=== PATIENT | male | born 1970 | race Caucasian/White ===

== ENCOUNTER 2016-08-29 16:54 | Emergency (ER) ==
[2016-08-29 17:01] VITALS: BP 176/95; TEMP 96.6; BMI 30.8
[2016-08-29] MEDS ORDERED: DUONEB NEB STA (17:07)
[2016-08-29] MEDS ORDERED: ZITHROMAX 500 MG in SODIUM CHLORIDE 250 ML IV STA (17:08)
[2016-08-29] MEDS ORDERED: SOLU-MEDROL 125 MG IVP STA (17:08)
[2016-08-29] MEDS ORDERED: XOPENEX 1.25 MG NEB STA (17:08)
[2016-08-29 17:11] LABS: ABG BASE EXCESS -2 (-2.0-2.0); ABG HCO3 23.1 (22.0-26.0); ABG PCO2 36.7 mmHg (35-45); ABG PH 7.406 (7.35-7.45); ABG TCO2 24 (22.0-28.0)
[2016-08-29 17:18] LABS: BASOPHILS # (AUTO) 0.1 K/uL (0-0.2); BASOPHILS % (AUTO) 0.4 % (0.0-3.0); EOSINOPHILS # (AUTO) 0.4 K/ul (0.0-0.7); EOSINOPHILS % (AUTO) 3.4 % (0.0-7.0); HEMATOCRIT 38.4 % (42.0-52.0); HEMOGLOBIN 12.8 g/dl (14.0-18.0); IMMATURE GRANULOCYTE % (AUTO) 0.3 % (0.0-5.0); LYMPHOCYTES % (AUTO) 32.3 (10.0-50.0); MEAN CORPUSCULAR HEMOGLOBIN 28.3 pg (27.0-31.0); MEAN CORPUSCULAR HGB CONC 33.3 (31.8-35.4); MONOCYTES # (AUTO) 0.9 K/uL (0.4-2.0); NEUTROPHILS % (AUTO) 56.6; PLATELET COUNT 384 10^3/uL (140-440); RED BLOOD COUNT 4.52 10^6/ul (4.70-6.10); WHITE BLOOD COUNT 12.31 K/ul (4.2-10.2)
[2016-08-29] MEDS ORDERED: DOXY-100 100 MG in SODIUM CHLORIDE 250 ML IV STA (17:32)
[2016-08-29 17:39] LABS: FLU INTERNAL QC INTERNAL QC VALID; RAPID FLU A NEGATIVE (NEGATIVE); RAPID FLU B NEGATIVE (NEGATIVE)
[2016-08-29 17:57] LABS: ALBUMIN 3.5 g/dL (3.4-5.0); ALBUMIN/GLOBULIN RATIO 0.88; ANION GAP 13.1; BILIRUBIN,TOTAL 0.29 mg/dL (0.00-1.20); BUN/CREATININE RATIO 11.88; CALCIUM 9.2 mg/dL (8.2-10.2); CREATININE 1.01 mg/dL (0.60-1.10); POTASSIUM 4.1 mmol/L (3.5-5.1); TOTAL PROTEIN 7.5 g/dL (6.4-8.2); TROPONIN I 0.01 ng/ml (0.0000-0.4000)
[2016-08-29 18:00] LABS: CREATINE KINASE MB 1.2 ng/ml (0.0-3.6)
--- NOTE | 2016-08-29 18:14 | CT ---
EXAM: Noncontrast CT of the chest HISTORY: Cough, fever COMPARISON: 12/18/2015 chest x-ray, 06/19/2015 CT TECHNIQUE: Noncontrast CT of the chest FINDINGS: An area of atelectasis and/or consolidation is seen within the right middle lobe. Mild right middle lobe tree in bud type opacities seen inferiorly. Mild left upper lobe tree in bud type opacities a re also present. There are minimal bilateral lower lobe tree in bud opacities, left greater than ri ght. There is mild left lingular atelectasis or scarring with minimal adjacent pleural calcificatio n.. No pneumothorax or pleural effusion is seen. Heart size is normal. A 10 mm pretracheal lymph node is seen, minimally increased. A 12 mm pretrac heal lymph node is seen, also increased. A 10 mm prevascular lymph node is seen, increased in size. A 10 mm subcarinal lymph node is present, also increased. Other smaller mediastinal lymph nodes ar e present. Evaluation for hilar lymphadenopathy is limited due to noncontrast technique. IMPRESSION: Mild bilateral tree-in-bud opacities most prominent within the left upper lobe and right middle lobe , compatible with small airway infection or inflammation. Mild right middle lobe atelectasis and/or consolidation. Mild left lingular atelectasis or scarring. Borderline enlarged to mildly enlarged nonspecific mediastinal lymph nodes, likely reactive.
--- NOTE | 2016-08-29 18:22 | ED.PDOC ---
General ED Provider: Dr. JUDITH ESPINOZA-ER Chief Complaint: Shortness of Air Stated Complaint: im coughing and wheezing Time Seen by Physician: 18:20 Mode of Arrival: Walk-In Information Source: Patient Exam Limitations: No limitations Nursing and Triage Documentation Reviewed and Agree: Yes Respiratory Complaint Exam - Respiratory Complaint/Exam Onset/Duration: 24hrs Symptoms Are: Still present Timing: Intermittent Initial Severity: Mild Current Severity: Mild Location: Nose, Chest Character: Reports: Non-productive cough Aggravating: Reports: URI Alleviating: Reports: None Associated Signs and Symptoms: Reports: URI, Nasal congestion, Sore throat. Denies: Rapid breathing, Dyspnea, Fever, Chills, Chest pain, Pleuritic chest pain, Wheezing, Hemoptysis, Dizziness, Calf pain, Calf swelling, Edema, Hoarseness, Sinus discomfort, Vomiting, Weight loss, Decreased oral intake, Increased thirst, Increased appetite, Increased urination Related History: Reports: Similar episode History of Healthcare-Acquired Pneumonia: No Related Surgical History: Reports: None Pulmonary Embolism Risk Factors: None Cardiac Risk Factors: Reports: None Pseudomonas Risk Factors: Reports: None Tuberculosis Risk Factors: Reports: None Status Asthmaticus Risk Factors: Reports: None Home Oxygen Use: No Recent Stress Test: No Recent Echo/LV Function: No Current Antibiotic Use: No Current Asthma Medication Use: No Respiratory Distress: None Inadequate Respiratory Effort: No Dysphagia Present: No Accessory Muscle Use: No Retractions: Not Present Diminished Breath Sounds: No Sinus Tenderness: None Grunting Respirations: No Kussmaul Respirations: No Differential Diagnoses: Bronchitis Review of Systems - Review Of Systems Constitutional: Reports: No symptoms Eyes: Reports: No symptoms Ears, Nose, Mouth, Throat: Reports: Nose discharge Respiratory: Reports: Cough Cardiac: Reports: No symptoms GI: Reports: No symptoms : Reports: No symptoms Musculoskeletal: Reports: No symptoms Skin: Reports: No symptoms Neurological: Reports: No symptoms Endocrine: Reports: No symptoms Hematologic/Lymphatic: Reports: No symptoms All Other Systems: Reviewed and Negative Past Medical History - Past Medical History Previously Healthy: Yes Endocrine: Reports: None Cardiovascular: Reports: None Respiratory: Reports: None Hematological: Reports: None Gastrointestinal: Reports: None Genitourinary: Reports: None Neuro/Psych: Reports: None Musculoskeletal: Reports: None Cancer: Reports: None - Surgical History General Surgical History: Reports: Appendectomy - Family History Family History: Reports: Unknown - Social History Smoking Status: Former smoker Hx Substance Use: No Alcohol Screening: None Lives: With family Physical Exam - Physical Exam Appearance: Well-appearing Eyes: MAXIM, EOMI, Conjunctiva clear ENT: Ears normal, Nose normal, Oropharynx normal Neck: Supple Respiratory: Wheezes Cardiovascular: RRR, Pulses normal, No rub, No murmur GI/: Soft, Hepatomegaly Musculoskeletal: Normal strength, ROM intact, No edema, No calf tenderness Skin: Warm Neurological: Sensation intact, Motor intact, Reflexes intact, Cranial nerves intact, Alert, Oriented Psychiatric: Affect appropriate, Mood appropriate Interpretation - Radiology Interpretation Radiology Interpretation By: Radiologist Radiology Results: Positive Exam Interpreted: CT Scan Re-Evaluation - Re-Evaluation Time of Re-Evaluation: 18:22 Status: Improved Vital Signs Stable: Yes Pain Level: 1 Appearance: NAD Lungs: Clear Skin: Warm and Dry Neuro: Alert and Oriented X3 CV: RRR Critical Care Note - Critical Care Note Total Time (mins): 0 Course - Course Hematology/Chemistry: 08/29/16 17:10 08/29/16 17:10 Orders, Labs, Meds: Lab Review 08/29/16 08/29/16 17:05 17:10 WBC 12.31 H RBC 4.52 L Hgb 12.8 L Hct 38.4 L MCV 85.0 MCH 28.3 MCHC 33.3 RDW Coeff of Dwight 12.7 Plt Count 384 Immature Gran % (Auto) 0.3 Neut % (Auto) 56.6 Lymph % (Auto) 32.3 [place] % (Auto) 7.0 Eos % (Auto) 3.4 Baso % (Auto) 0.4 Immature Gran # (Auto) 0.0 Neut # 7.0 H Lymph # 4.0 H [place] # 0.9 Eos # 0.4 Baso # 0.1 D-Dimer 0.40 Puncture Site Rr O2 Saturation 92.0 L ABG pH 7.406 ABG pCO2 36.7 ABG pO2 64.0 L ABG HCO3 23.1 ABG Total CO2 24 ABG Base Excess -2 Nguyễn Test + FiO2 % 21.0 Sodium 140 Potassium 4.1 Chloride 105 Carbon Dioxide 26 Anion Gap 13.1 BUN 12 Creatinine 1.01 Estimated GFR (MDRD) 80.00 BUN/Creatinine Ratio 11.88 Glucose 93 Calcium 9.2 Total Bilirubin 0.29 AST 19 ALT 15 Alkaline Phosphatase 91 Total Creatine Kinase 160 CK-MB (CK-2) 1.2 CK-MB (CK-2) % 0.30358 Troponin I 0.0100 B-Natriuretic Peptide 19 Total Protein 7.5 Albumin 3.5 Globulin 4.0 Albumin/Globulin Ratio 0.88 Influenza A (Rapid) Negative Influenza B (Rapid) Negative Orders Category Date Time Status ABG DRAW REQUEST Stat CARDIO 08/29/16 17:06 Completed EKG-(ED ONLY) Stat CARDIO 08/29/16 17:05 Completed NEBULIZER TREATMENT Stat CARDIO 08/29/16 17:07 Completed NEBULIZER TREATMENT Stat CARDIO 08/29/16 17:08 Completed IV [ED IV/MEDIPORT/POWERPORT] .ONCE EMERGENCY 08/29/16 17:07 Active ABG Stat LAB 08/29/16 17:05 Completed B-TYPE NATRIURETIC PEPTIDE Stat LAB 08/29/16 17:10 Completed BLOOD CULTURE Stat LAB 08/29/16 17:10 Received CBC W/ AUTO DIFF Stat LAB 08/29/16 17:10 Completed COMPREHENSIVE METABOLIC PANEL Stat LAB 08/29/16 17:10 Completed CREATINE KINASE Stat LAB 08/29/16 17:10 Completed D-DIMER Stat LAB 08/29/16 17:10 Completed MOLECULAR GROUP A STREP Stat LAB 08/29/16 17:10 Results RAPID FLU A/B Stat LAB 08/29/16 17:10 Completed STREP SCREEN Stat LAB 08/29/16 17:10 Results TROPONIN I Stat LAB 08/29/16 17:10 Completed 0.9 % Sodium Chloride [Saline Flush] MEDS 08/29/16 17:07 Ordered 1 syr IVF PRN PRN Doxycycline Hyclate Inj [Doxy-100] 100 mg MEDS 08/29/16 17:32 Active 0.9 % Sodium Chloride [Sodium Chloride] 250 ml IV ONCE Ipratropium/Albuterol Neb [Duoneb] MEDS 08/29/16 17:07 Discontinued 1 vial NEB ONCE STA Levalbuterol HCl [Xopenex 1.25 mg] MEDS 08/29/16 17:08 Discontinued 1 vial NEB ONCE STA Methylprednisolone Sod Succ/Pf [Solu-Medrol 125 mg] MEDS 08/29/16 17:08 Discontinued 125 [address] IVP ONCE STA CT CHEST W/O CONTRAST Stat RADS 08/29/16 17:07 Completed Medications Generic Name Dose Route Start Last Admin Trade Name Freq PRN Reason Stop Dose Admin Doxycycline Hyclate 100 mg/ 250 mls @ 100 mls/hr 08/29/16 17:32 08/29/16 17: 51 Sodium Chloride IV 08/29/16 20:01 100 mls/hr ONCE STA Administration Sodium Chloride 1 syr 08/29/16 17:07 Saline Flush IVF PRN PRN To flush IV Discontinued Medications Generic Name Dose Route Start Last Admin Trade Name Freq PRN Reason Stop Dose Admin Albuterol/Ipratropium 1 vial 08/29/16 17:07 08/29/16 17:29 Duoneb NEB 08/29/16 17:08 1 vial ONCE STA Administration Levalbuterol HCl 1 vial 08/29/16 17:08 08/29/16 17:17 Xopenex 1.25 Mg NEB 08/29/16 17:09 1 vial ONCE STA Administration Methylprednisolone Sodium Succinate 125 mg 08/29/16 17:08 08/29/16 17:12 Solu-Medrol 125 Mg IVP 08/29/16 17:09 125 mg ONCE STA Administration Vital Signs: Temp Pulse Resp BP Pulse Ox 08/29/16 16:54 96.6 F L 80 20 176/95 H 95 Departure - Departure Time of Disposition: 18:22 Disposition: AMA Discharge Problem: Pneumonia Qualifiers: Pneumonia type: due to unspecified organism Laterality: unspecified laterality Lung location: unspecified part of lung Qualifier Code: (J18.9) Pneumonia, unspecified organism Instructions: Community Acquired Pneumonia (ED) Condition: Good Pt referred to PMD for follow-up: Yes Additional Instructions: doxycycline 100mg bid x 7days--medrol dose pack--albuterol inhaler 2 puffs qid - -return prn Allergies/Adverse Reactions: Allergies ciprofloxacin [From Cipro] Adverse Reaction (Verified 08/29/16 17:03) ciprofloxacin HCl [From Cipro] Adverse Reaction (Verified 08/29/16 17:03) clarithromycin [From Biaxin] Adverse Reaction (Verified 08/29/16 17:03) Penicillins Adverse Reaction (Verified 08/29/16 17:03) Home Medications: Ambulatory Orders Albuterol Sulfate [Proventil Hfa] 6.7 gm IH QID PRN #1 [email or web address] 12/18/15 Disposition Discussed With: Patient
== END 2016-08-29 20:38 | disposition left against medical advice (07) ==
LOC: ED 16:54
DX: J18.9 Pneumonia, unspecified organism (principal)
CPT/HCPCS: 36415; 80053; 82550; 82553; 82803; 83880; 84484; 85025; 85379; 87040; 87651; 87804; 87880; 93005; 93010; 94640; 96365; 96366; 96375; 99284

== ENCOUNTER 2016-12-10 19:46 | Emergency (ER) ==
[2016-12-10] MEDS ORDERED: EYE-STREAM OP STA (19:52)
[2016-12-10] MEDS ORDERED: FLUORETS OP STA (19:52)
[2016-12-10 19:53] VITALS: BP 140/95; TEMP 98.4; BMI 29.6
[2016-12-10] MEDS ORDERED: TETRACAINE 0.5% UNIT-DOSE OP STA (19:53)
[2016-12-10] MEDS ORDERED: GENTAK OPTH OINT OP STA (19:53)
--- NOTE | 2016-12-10 20:07 | ED.PDOC ---
General ED Provider: Dr. JUDITH ESPINOZA-ER Chief Complaint: Eye Problem Stated Complaint: i got some coal dust in my left eye 2 days ago adn removed it- -now my eye is red and draining.. Time Seen by Physician: 19:50 Mode of Arrival: Walk-In Information Source: Patient Exam Limitations: No limitations Nursing and Triage Documentation Reviewed and Agree: Yes EENT Complaint Exam - Eye Complaint/Exam Onset/Duration: 2 days Symptoms Are: Still present Timing: Constant Initial Severity: Mild Current Severity: Moderate Location: Discreet, Left Character: Reports: Dull Aggravating: Reports: Light, Blinking Associated Signs and Symptoms: Reports: Photophobia, Purulent drainage. Denies : Clear drainage, Vision impairment, Fever, Swelling Eye Surgical History: Reports: None Penetrating Injury Risk Factors: None Globe Rupture Risk Factors: None Acute Glaucoma Risk Factors: None Optic Artery Occlusion Risk Factors: None Visual Field: Normal Extraocular Movement: Normal Orbit Findings: Normal Globe Findings: Intact Lid Findings: Normal Conjunctival Findings: Red, Exudate Corneal Findings: Clear Fluorescein Uptake: Yes Fundi: Normal Slit Lamp Used: No Differential Diagnoses: Conjunctivitis, Corneal Abrasion, Foreign Body Review of Systems - Review Of Systems Constitutional: Reports: No symptoms Eyes: Reports: Drainage, Pain, Photophobia, Contact lenses, Glasses Ears, Nose, Mouth, Throat: Reports: No symptoms Respiratory: Reports: No symptoms Cardiac: Reports: No symptoms GI: Reports: No symptoms : Reports: No symptoms Musculoskeletal: Reports: No symptoms Skin: Reports: No symptoms Neurological: Reports: No symptoms Endocrine: Reports: No symptoms Hematologic/Lymphatic: Reports: No symptoms All Other Systems: Reviewed and Negative Past Medical History - Past Medical History Previously Healthy: Yes Endocrine: Reports: None Cardiovascular: Reports: None Respiratory: Reports: None Hematological: Reports: None Gastrointestinal: Reports: None Genitourinary: Reports: None Neuro/Psych: Reports: None Musculoskeletal: Reports: None Cancer: Reports: None - Surgical History General Surgical History: Reports: Appendectomy - Family History Family History: Reports: Unknown - Social History Smoking Status: Former smoker Hx Substance Use: No Alcohol Screening: None Lives: With family Physical Exam - Physical Exam Appearance: Well-appearing, No pain distress, Well-nourished Pain Distress: Mild Eyes: MAXIM, EOMI, Conjunctiva inflammed, Right pupil size, Left pupil size ENT: Ears normal, Nose normal, Oropharynx normal Neck: Supple Respiratory: Airway patent, Breath sounds clear, Breath sounds equal, Respirations nonlabored Cardiovascular: RRR, Tachycardia GI/: Soft, Nontender, No masses, Bowel sounds normal, No Organomegaly Musculoskeletal: Normal strength Skin: Warm Neurological: Sensation intact Psychiatric: Affect appropriate, Mood appropriate Procedures - Eye Procedure Location of Foreign Body: no f.b seen Tetracaine Drops Administered: Yes Eye FB Removal: Other (fb not seen but corneal abrasion is seen) Depth: Superficial Eye Irrigated: Yes Critical Care Note - Critical Care Note Total Time (mins): 0 Course - Course Orders, Labs, Meds: Orders Category Date Time Status Eye [ED EYE PATCH] .ONCE EMERGENCY 12/10/16 19:52 Active Balanced Salt Solution [Eye-Stream] MEDS 12/10/16 19:52 Discontinued 1 bottle OP ONCE STA Fluorescein Sodium [Fluorets] MEDS 12/10/16 19:52 Discontinued 1 strip OP ONCE STA Gentamicin Sulfate [Gentak Opth Oint] MEDS 12/10/16 19:53 Discontinued 1 applic OP ONCE STA Tetracaine HCl/Pf [Tetracaine 0.5% Unit-Dose] MEDS 12/10/16 19:53 Discontinued 2 drop OP ONCE STA Medications Discontinued Medications Generic Name Dose Route Start Last Admin Trade Name Freq PRN Reason Stop Dose Admin Eye Irrigation Solution 1 bottle 12/10/16 19:52 Eye-Stream OP 12/10/16 19:53 ONCE STA Fluorescein Sodium 1 strip 12/10/16 19:52 Fluorets OP 12/10/16 19:53 ONCE STA Gentamicin Sulfate 1 applic 12/10/16 19:53 Gentak Opth Oint OP 12/10/16 19:54 ONCE STA Tetracaine HCl 2 drop 12/10/16 19:53 Tetracaine 0.5% Unit-Dose OP 12/10/16 19:54 ONCE STA Vital Signs: Temp Pulse Resp BP Pulse Ox 12/10/16 19:47 98.4 F 69 20 140/95 H 96 Departure - Departure Time of Disposition: 20:07 Disposition: HOME SELF-CARE Discharge Problem: Corneal abrasion Qualifiers: Encounter type: initial encounter Laterality: left Qualifier Code: (S05.02XA) Injury of conjunctiva and corneal abrasion without foreign body, left eye, initial encounter Instructions: Corneal Abrasion (ED) Condition: Good Pt referred to PMD for follow-up: Yes Additional Instructions: keep eye patched--norco 7.5mg q 4hrs prn pain #10--reapply the gentamycin ointment in the eye in am and you must see eye professional tomorrow to recheck eye--do not wear contact lens till healed Allergies/Adverse Reactions: Allergies ciprofloxacin [From Cipro] Adverse Reaction (Verified 12/10/16 19:54) ciprofloxacin HCl [From Cipro] Adverse Reaction (Verified 12/10/16 19:54) clarithromycin [From Biaxin] Adverse Reaction (Verified 12/10/16 19:54) Penicillins Adverse Reaction (Verified 12/10/16 19:54) Home Medications: Ambulatory Orders Albuterol Sulfate [Proventil Hfa] 6.7 gm IH QID PRN #1 [email or web address] 12/18/15 Disposition Discussed With: Patient
== END 2016-12-10 20:29 | disposition home or self-care (01) ==
LOC: ED 19:46
DX: S05.02XA Injury of conjunctiva and corneal abrasion without foreign body, left eye, initial encounter (principal)
CPT/HCPCS: 99282

== ENCOUNTER 2017-05-03 17:32 | Emergency (ER) ==
[2017-05-03 17:38] VITALS: BP 114/79; TEMP 98.9; BMI 31.7
[2017-05-03] MEDS ORDERED: DUONEB NEB STA (19:00)
[2017-05-03] MEDS ORDERED: DECADRON 4 MG/ML SDV IM STA (19:00)
[2017-05-03 19:18] LABS: BASOPHILS # (AUTO) 0.1 K/uL (0-0.2); BASOPHILS % (AUTO) 0.4 % (0.0-3.0); EOSINOPHILS # (AUTO) 0.4 K/ul (0.0-0.7); EOSINOPHILS % (AUTO) 3.1 % (0.0-7.0); HEMATOCRIT 34.4 % (42.0-52.0); HEMOGLOBIN 11.6 g/dl (14.0-18.0); IMMATURE GRANULOCYTE % (AUTO) 0.4 % (0.0-5.0); LYMPHOCYTES # (AUTO) 4.3 K/uL (0.60-3.4); LYMPHOCYTES % (AUTO) 33.3 (10.0-50.0); MEAN CORPUSCULAR HEMOGLOBIN 28.6 pg (27.0-31.0); MEAN CORPUSCULAR HGB CONC 33.7 (31.8-35.4); MEAN CORPUSCULAR VOLUME 84.7 fl (80.0-94.0); MONOCYTES % (AUTO) 7.3 (0-10); NEUTROPHILS # (AUTO) 7.2 K/ul (2.0-6.9); NEUTROPHILS % (AUTO) 55.5; PLATELET COUNT 358 10^3/uL (140-440); RED BLOOD COUNT 4.06 10^6/ul (4.70-6.10); WHITE BLOOD COUNT 12.99 K/ul (4.2-10.2)
[2017-05-03 19:33] LABS: FLU INTERNAL QC INTERNAL QC VALID; RAPID FLU A NEGATIVE (NEGATIVE); RAPID FLU B NEGATIVE (NEGATIVE)
[2017-05-03 19:42] LABS: ALBUMIN 3.4 g/dL (3.4-5.0); ALBUMIN/GLOBULIN RATIO 0.89; ANION GAP 12.8; BILIRUBIN,TOTAL 0.26 mg/dL (0.00-1.20); BUN/CREATININE RATIO 13.95; CALCIUM 9.5 mg/dL (8.2-10.2); CREATININE 0.86 mg/dL (0.60-1.10); POTASSIUM 3.8 mmol/L (3.5-5.1); TOTAL PROTEIN 7.2 g/dL (6.4-8.2)
[2017-05-03 19:58] LABS: ABG BASE EXCESS 2 (-2.0-2.0); ABG HCO3 26 (22.0-26.0); ABG PCO2 40.2 mmHg (35-45); ABG PH 7.419 (7.35-7.45); ABG TCO2 27 (22.0-28.0)
--- NOTE | 2017-05-03 20:45 | ED.PDOC ---
General ED Provider: Dr. JUDITH ESPINOZA-ER Chief Complaint: Shortness of Air Stated Complaint: im coughing and running a fever Time Seen by Physician: 17:35 Mode of Arrival: Walk-In Information Source: Family Exam Limitations: No limitations Nursing and Triage Documentation Reviewed and Agree: Yes Respiratory Complaint Exam - Respiratory Complaint/Exam Onset/Duration: 3 weeks Symptoms Are: Still present Timing: Intermittent Initial Severity: Mild Current Severity: Moderate Location: Chest Character: Reports: Productive cough Aggravating: Reports: None Alleviating: Reports: None Associated Signs and Symptoms: Reports: Fever, Wheezing, URI, Nasal congestion. Denies: Rapid breathing, Dyspnea, Chills, Chest pain, Pleuritic chest pain, Hemoptysis, Dizziness, Calf swelling, Edema, Hoarseness, Sinus discomfort, Vomiting, Sore throat, Weight loss, Decreased oral intake, Increased thirst, Increased urination Related History: Reports: Similar episode History of Healthcare-Acquired Pneumonia: No Status Asthmaticus Risk Factors: Reports: None Home Oxygen Use: No Recent Stress Test: No Recent Echo/LV Function: No Current Antibiotic Use: No Current Asthma Medication Use: No Respiratory Distress: None Inadequate Respiratory Effort: No Dysphagia Present: No Stridor Present: No JVD Present: No Accessory Muscle Use: No Retractions: Not Present Diminished Breath Sounds: No Prolonged Respiration: Expiratory phase Sinus Tenderness: None Grunting Respirations: No Kussmaul Respirations: No Differential Diagnoses: Asthma, COPD Exacerbation Review of Systems - Review Of Systems Constitutional: Reports: No symptoms Eyes: Reports: No symptoms Ears, Nose, Mouth, Throat: Reports: No symptoms Respiratory: Reports: Cough, Wheezing Cardiac: Reports: No symptoms GI: Reports: No symptoms : Reports: No symptoms Musculoskeletal: Reports: No symptoms Skin: Reports: No symptoms Neurological: Reports: No symptoms Endocrine: Reports: No symptoms Hematologic/Lymphatic: Reports: No symptoms All Other Systems: Reviewed and Negative Past Medical History - Past Medical History Previously Healthy: Yes Endocrine: Reports: None Cardiovascular: Reports: None Respiratory: Reports: None Hematological: Reports: None Gastrointestinal: Reports: None Genitourinary: Reports: None Neuro/Psych: Reports: None Musculoskeletal: Reports: None Cancer: Reports: None - Surgical History General Surgical History: Reports: Appendectomy - Family History Family History: Reports: Unknown - Social History Smoking Status: Former smoker Hx Substance Use: No Alcohol Screening: None Physical Exam - Physical Exam Appearance: Well-appearing, No pain distress, Well-nourished Pain Distress: Mild Eyes: MAXIM ENT: Ears normal, Nose normal, Oropharynx normal Neck: Supple Respiratory: Rhonchi, Wheezes Cardiovascular: RRR GI/: Soft Musculoskeletal: Normal strength, ROM intact, No edema, No calf tenderness Skin: Warm, Dry, Normal color Neurological: Sensation intact Psychiatric: Affect appropriate, Mood appropriate Interpretation - Radiology Interpretation Radiology Interpretation By: ED Physician Radiology Results: Negative Exam Interpreted: Portable CXR Critical Care Note - Critical Care Note Total Time (mins): 0 Course - Course Hematology/Chemistry: 05/03/17 19:10 05/03/17 19:10 Orders, Labs, Meds: Lab Review 05/03/17 05/03/17 05/03/17 18:59 19:10 19:10 WBC 12.99 H RBC 4.06 L Hgb 11.6 L Hct 34.4 L MCV 84.7 MCH 28.6 MCHC 33.7 RDW Coeff of Dwight 13.0 Plt Count 358 Immature Gran % (Auto) 0.4 Neut % (Auto) 55.5 Lymph % (Auto) 33.3 [place] % (Auto) 7.3 Eos % (Auto) 3.1 Baso % (Auto) 0.4 Immature Gran # (Auto) 0.1 Neut # 7.2 H Lymph # 4.3 H [place] # 1.0 Eos # 0.4 Baso # 0.1 Puncture Site Lrad O2 Saturation 92.0 L ABG pH 7.419 ABG pCO2 40.2 ABG pO2 62.0 L ABG HCO3 26 ABG Total CO2 27 ABG Base Excess 2 Nguyễn Test + FiO2 % 21.0 Sodium 141 Potassium 3.8 Chloride 107 Carbon Dioxide 25 Anion Gap 12.8 BUN 12 Creatinine 0.86 Estimated GFR (MDRD) 97.00 BUN/Creatinine Ratio 13.95 Glucose 94 Lactic Acid Calcium 9.5 Total Bilirubin 0.26 AST 15 ALT 15 Alkaline Phosphatase 85 Total Protein 7.2 Albumin 3.4 Globulin 3.8 Albumin/Globulin Ratio 0.89 Procalcitonin Influenza A (Rapid) Influenza B (Rapid) 05/03/17 05/03/17 05/03/17 19:10 19:10 19:10 WBC RBC Hgb Hct MCV MCH MCHC RDW Coeff of Dwight Plt Count Immature Gran % (Auto) Neut % (Auto) Lymph % (Auto) [place] % (Auto) Eos % (Auto) Baso % (Auto) Immature Gran # (Auto) Neut # Lymph # [place] # Eos # Baso # Puncture Site O2 Saturation ABG pH ABG pCO2 ABG pO2 ABG HCO3 ABG Total CO2 ABG Base Excess Nguyễn Test FiO2 % Sodium Potassium Chloride Carbon Dioxide Anion Gap BUN Creatinine Estimated GFR (MDRD) BUN/Creatinine Ratio Glucose Lactic Acid 4.9 Calcium Total Bilirubin AST ALT Alkaline Phosphatase Total Protein Albumin Globulin Albumin/Globulin Ratio Procalcitonin < 0.05 Influenza A (Rapid) Negative Influenza B (Rapid) Negative Orders Category Date Time Status ABG DRAW REQUEST Stat CARDIO 05/03/17 18:59 Completed EKG-(ED ONLY) Stat CARDIO 05/03/17 18:59 Completed NEBULIZER TREATMENT Stat CARDIO 05/03/17 19:00 Completed ABG Stat LAB 05/03/17 18:59 Completed BLOOD CULTURE Stat LAB 05/03/17 19:10 Received CBC W/ AUTO DIFF Stat LAB 05/03/17 19:10 Completed COMPREHENSIVE METABOLIC PANEL Stat LAB 05/03/17 19:10 Completed LACTIC ACID Stat LAB 05/03/17 19:10 Completed MOLECULAR GROUP A STREP Stat LAB 05/03/17 19:10 Results PROCALCITONIN Stat LAB 05/03/17 19:10 Completed PROLACTIN Stat LAB 05/03/17 19:10 Stop Req RAPID FLU A/B Stat LAB 05/03/17 19:10 Completed STREP SCREEN Stat LAB 05/03/17 19:10 Results Dexamethasone 4 mg/ml Inj [Decadron 4 mg/ml Sdv] MEDS 05/03/17 19:00 Discontinued 8 mg IM ONCE STA Ipratropium/Albuterol Neb [Duoneb] MEDS 05/03/17 19:00 Discontinued 1 vial NEB ONCE STA CXR [CHEST, 2 VIEWS PA & LAT] Stat RADS 05/03/17 19:00 Taken Medications Discontinued Medications Generic Name Dose Route Start Last Admin Trade Name Freq PRN Reason Stop Dose Admin Albuterol/Ipratropium 1 vial 05/03/17 19:00 05/03/17 19:58 Duoneb NEB 05/03/17 19:01 1 vial ONCE STA Administration Dexamethasone Sodium Phosphate 8 mg 05/03/17 19:00 05/03/17 19:10 Decadron 4 Mg/Ml Sdv IM 05/03/17 19:01 8 mg ONCE STA Administration Vital Signs: Temp Pulse Resp BP Pulse Ox 05/03/17 17:33 98.9 F 81 20 114/79 90 L Departure - Departure Time of Disposition: 20:45 Disposition: HOME SELF-CARE Discharge Problem: Asthmatic bronchitis Qualifiers: Asthma severity: mild intermittent Asthma complication type: with acute exacerbation Qualified Code(s): J45.21 - Mild intermittent asthma with (acute) exacerbation Instructions: Acute Bronchitis (ED) Condition: Good Pt referred to PMD for follow-up: Yes Additional Instructions: minocin 100mg q 12hrs #14--medrol dose pack--[id number] 1 tsp q 6hrs prn cough 150cc--f/u with pcp in 48hrs sooner if feeling worse Allergies/Adverse Reactions: Allergies ciprofloxacin [From Cipro] Adverse Reaction (Verified 05/03/17 17:39) ciprofloxacin HCl [From Cipro] Adverse Reaction (Verified 05/03/17 17:39) clarithromycin [From Biaxin] Adverse Reaction (Verified 05/03/17 17:39) Penicillins Adverse Reaction (Verified 05/03/17 17:39) Home Medications: Ambulatory Orders Albuterol Sulfate [Proventil Hfa] 6.7 gm IH QID PRN #1 [email or web address] 12/18/15 Disposition Discussed With: Patient
--- NOTE | 2017-05-04 05:31 | DI ---
EXAM: Chest, two views, 05/03/2017 HISTORY: Cough COMPARISON: 12/18/2015 FINDINGS / IMPRESSION: Patchy left basilar infiltrates. This likely represents a combination of ate lectasis and pneumonia. The right lung appears normally aerated. Heart size appears within normal limits No pleural effusion or pneumothorax.
== END 2017-05-03 20:54 | disposition home or self-care (01) ==
LOC: ED 17:32
DX: J45.21 Mild intermittent asthma with (acute) exacerbation (principal)
CPT/HCPCS: 36415; 80053; 82803; 83605; 84145; 84146; 85025; 87040; 87651; 87804; 87880; 93005; 93010; 94640; 96372; 99283

== ENCOUNTER 2018-03-27 13:14 | Observation (INO) ==
[2018-03-27 13:18] VITALS: BMI 30.4
[2018-03-27] MEDS ORDERED: DUONEB NEB STA (13:26)
[2018-03-27] MEDS ORDERED: SODIUM CHLORIDE 1,000 ML IV STA (14:12)
--- NOTE | 2018-03-27 14:30 | CT ---
EXAM: CTA chest with contrast using PE protocol. TECHNIQUE: Helical CTA of the chest was performed with contrast in axial plane with coronal and sagit yomaira reconstructions and separate work station 3-D renderings. COMPARISON: CT chest from 08/29/2016 HISTORY: Chest pain. Short of breath FINDINGS: There are no filling defects in the pulmonary arteries to the level of the subsegmental branches. The re is no sign of ventricular strain. There are some continued increased lung markings in the left mid lung area consistent with scarring and/or atelectasis. There is no pathologic supraclavicular, axil kg, mediastinal or hilar adenopathy. There is no pericardial effusion or pneumothorax. The aorta demonstrates no significant atherosclerot ic calcifications with no dissection or aneurysm. The upper abdomen is benign with no acute abnormali ty. 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 The right vertebral artery is not definitely seen. 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 There are no acute osseo us abnormalities. IMPRESSION: 1. No evidence for pulmonary embolus. 2. Chronic scarring in the left mid lung. 3. 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 4. 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
--- NOTE | 2018-03-27 14:49 | ED.PDOC ---
General ED Provider: Dr. HALEY PEDERSON Chief Complaint: Shortness of Air Stated Complaint: short of acutely worse today Time Seen by Physician: 13:14 (SOB X 2 DAYS WORSE TODAY) Mode of Arrival: Wheelchair Information Source: Patient Exam Limitations: No limitations Nursing and Triage Documentation Reviewed and Agree: Yes Does patient meet sepsis criteria?: No If yes, has appropriate treatment been initiated?: No System Inflammatory Response Syndrome: Not Applicable Sepsis Protocol: For patient's 13 years and over: Temp is 96.8 and below OR 101 and greater Pulse >90 BPM Resp >20/minute Acutely Altered Mental Status Are patient's symptoms suggestive of a new infection, such as: -Pneumonia -Skin, Soft Tissue -Endocarditis -UTI -Bone, Joint Infection -Implantable Device -Acute Abdominal Infection -Wound Infection -Meningitis -Blood Stream Catheter Infection -Unknown Respiratory Complaint Exam - Shortness of Air Complaint/Exam Onset/Duration: 2 DAYS WORSE TODAY Symptoms Are: Still present Timing: Constant Initial Severity: Moderate Current Severity: Moderate Character: Reports: Dyspnea at rest, Dyspnea on exertion, Orthopnea Aggravating: Reports: Recumbent position, Weather Alleviating: Reports: Bronchodilators, Upright position Associated Signs and Symptoms: Reports: Cough, Wheezing. Denies: Chest pain with cough, Chest pain, Fever, Chills, Diaphoresis, Nasal congestion, Dizziness , Calf pain, Calf swelling, Edema, Rapid breathing, Labored breathing, Decreased intake Related History: Reports: Similar episode History of Healthcare-Acquired Pneumonia: No Pulmonary Embolism Risk Factors: Reports: None. Denies: Smoking (CHEWS ) Cardiac Risk Factors: Reports: Smoking Pseudomonas Risk Factors: Reports: None Tuberculosis Risk Factors: Reports: None Home Oxygen Use: No Recent Stress Test: No Recent Echo/LV Function: No Respiratory Distress: None Stridor Present: No Tracheal Deviation: No Subcutaneous Emphysema: No Accessory Muscle Use: No Retractions: Not Present Diminished Breath Sounds: Yes Prolonged Expiratory Phase: No Unable to Speak Full Sentences: No Fatigue: No Leg Swelling: No Sarah's Sign Present: No Grunting Respirations: No Kussmaul Respirations: No Differential Diagnoses: Pneumonia, Pulmonary Embolism, Bronchitis Quality Indicators for AMI: EKG in 10min. Quality Indicators for Cardiac Chest Pain: EKG in 10min. Review of Systems - Review Of Systems Constitutional: Reports: Malaise Eyes: Reports: No symptoms Ears, Nose, Mouth, Throat: Reports: No symptoms Respiratory: Reports: Cough, Short of air, Wheezing Cardiac: Reports: No symptoms GI: Reports: No symptoms : Reports: No symptoms Musculoskeletal: Reports: No symptoms Skin: Reports: No symptoms Neurological: Reports: No symptoms Endocrine: Reports: No symptoms Hematologic/Lymphatic: Reports: No symptoms All Other Systems: Reviewed and Negative Past Medical History - Past Medical History Previously Healthy: Yes Endocrine: Reports: None Cardiovascular: Reports: None Respiratory: Reports: None Hematological: Reports: None Gastrointestinal: Reports: None Genitourinary: Reports: None Neuro/Psych: Reports: None Musculoskeletal: Reports: None Cancer: Reports: None - Surgical History General Surgical History: Reports: Appendectomy - Family History Family History: Reports: Unknown - Social History Smoking Status: Former smoker Hx Substance Use: No Alcohol Screening: None Physical Exam - Physical Exam Appearance: Ill-appearing Ill-appearing: Moderate Pain Distress: Mild Eyes: MAXIM, EOMI, Conjunctiva clear ENT: Ears normal, Nose normal, Oropharynx normal Respiratory: Rhonchi, Wheezes Cardiovascular: RRR, Pulses normal, No rub, No murmur GI/: Soft, Nontender, No masses, Bowel sounds normal, No Organomegaly Musculoskeletal: Normal strength, ROM intact, No edema, No calf tenderness Skin: Warm, Dry, Normal color Neurological: Sensation intact, Motor intact, Reflexes intact, Cranial nerves intact, Alert, Oriented Psychiatric: Affect appropriate, Mood appropriate Interpretation - Radiology Interpretation Radiology Interpretation By: Radiologist Radiology Results: No acute changes (NO PE NO DISECTION NOTED) - 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 Rate: Normal Rhythm: Sinus Ectopy: None - EKG Interpretation Rate: Normal Rhythm: Sinus Ectopy: None Scenic: Right ST Segment: Normal Re-Evaluation - Re-Evaluation Time of Re-Evaluation: 14:00 Status: Improved Vital Signs Stable: Yes Pain Level: 0 Appearance: Other (SHORT OF NEBULIZER GIVEN WILL ARTEAGA TO CT TO RULE OUT PE) - Re-Evaluation Time of Re-Evaluation: 15:00 Status: Improved Vital Signs Stable: Yes Pain Level: 0 Appearance: NAD Skin: Warm and Dry Neuro: Alert and Oriented X3 CV: RRR (NO CHEST PAIN) Physician Notification - Case Discussed Physician Notified: ROSSY Time of Notification: 14:51 (OBSERVATION) Admit To: Observation Critical Care Note - Critical Care Note Total Time (mins): 120 Course - Course Hematology/Chemistry: 03/27/18 13:40 03/27/18 13:40 Orders, Labs, Meds: Lab Review 03/27/18 03/27/18 03/27/18 13:30 13:40 13:40 WBC 9.15 RBC 5.24 Hgb 15.0 Hct 45.1 MCV 86.1 MCH 28.6 MCHC 33.3 RDW Coeff of Dwight 13.0 Plt Count 247 Immature Gran % (Auto) 0.1 Neut % (Auto) 64.4 Lymph % (Auto) 21.2 [place] % (Auto) 9.8 Eos % (Auto) 4.0 Baso % (Auto) 0.5 Immature Gran # (Auto) 0.0 Neut # (Auto) 5.9 Lymph # (Auto) 1.9 [place] # (Auto) 0.9 Eos # (Auto) 0.4 Baso # (Auto) 0.1 Puncture Site R brach O2 Saturation 89.0 L ABG pH 7.437 ABG pCO2 34.2 L ABG pO2 55.0 L* ABG HCO3 23.0 ABG Total CO2 24 ABG Base Excess -1 Nguyễn Test + FiO2 % 21.0 Sodium 137 Potassium 4.3 Chloride 103 Carbon Dioxide 24 Anion Gap 14.3 BUN 11 Creatinine 0.94 Estimated GFR (MDRD) 87.00 BUN/Creatinine Ratio 11.70 Glucose 90 Calcium 9.7 Total Bilirubin 0.6 AST 21 ALT 19 Alkaline Phosphatase 106 Total Creatine Kinase 134 CK-MB (CK-2) 1.7 CK-MB (CK-2) % 1.13961 Troponin I < 0.0100 Total Protein 7.8 Albumin 3.9 Globulin 3.9 Albumin/Globulin Ratio 1.00 Orders Category Date Time Status ABG DRAW REQUEST Stat CARDIO 03/27/18 13:25 Completed EKG-(ED ONLY) Stat CARDIO 03/27/18 13:24 Completed NEBULIZER TREATMENT Stat CARDIO 03/27/18 13:26 Completed NPO REMINDER: IMAGING ONCE CARE 03/27/18 13:27 Completed ABG Stat LAB 03/27/18 13:30 Completed CBC W/ AUTO DIFF Stat LAB 03/27/18 13:40 Completed COMPREHENSIVE METABOLIC PANEL Stat LAB 03/27/18 13:40 Completed CREATINE KINASE Stat LAB 03/27/18 13:40 Completed PT WITH INR Stat LAB 03/27/18 13:40 Received TROPONIN I Stat LAB 03/27/18 13:40 Completed URINALYSIS C & S IF INDICATED Stat LAB 03/27/18 13:24 Uncollected 0.9 % Sodium Chloride [Saline Flush] MEDS 03/27/18 13:24 Active 1 syr IVF PRN PRN Ipratropium/Albuterol Neb [Duoneb] MEDS 03/27/18 13:26 Discontinued 1 vial NEB ONCE STA Sodium Chloride 0.9% [Sodium Chloride] 1,000 ml MEDS 03/27/18 14:12 Active IV 250 mls/hr CT CHEST PE PROTOCOL Stat RADS 03/27/18 13:27 Completed Medications Generic Name Dose Route Start Last Admin Trade Name Freq PRN Reason Stop Dose Admin Sodium Chloride 1,000 mls @ 250 mls/hr 03/27/18 14:12 03/27/18 14:14 Sodium Chloride IV 03/27/18 18:11 250 mls/hr .Q4H STA Administration Sodium Chloride 1 syr 03/27/18 13:24 03/27/18 14:14 Saline Flush IVF 1 syr PRN PRN Administration To flush IV Discontinued Medications Generic Name Dose Route Start Last Admin Trade Name Freq PRN Reason Stop Dose Admin Albuterol/Ipratropium 1 vial 03/27/18 13:26 03/27/18 13:40 Duoneb NEB 03/27/18 13:27 1 vial ONCE STA Administration Vital Signs: Temp Pulse Resp BP Pulse Ox 03/27/18 13:14 97.4 F L 96 H 20 127/80 93 L Departure - Departure Time of Disposition: 14:52 (PT'S SOB MOSTLY IMPROVED STILL HYPOXIC O2 SAT 90. NO CHEST PAIN WILL BE ADMITTED PE RULED OUT) Disposition: PLACED OBSERVATION Discharge Problem: Shortness of breath Instructions: Dyspnea Scale and Exercise (ED) Condition: Good Pt referred to PMD for follow-up: Yes IPMP verified?: No Additional Instructions: Please call your Family Physician as soon as possible to schedule a follow-up appointment. Allergies/Adverse Reactions: Allergies ciprofloxacin [From Cipro] Adverse Reaction (Verified 03/27/18 13:18) ciprofloxacin HCl [From Cipro] Adverse Reaction (Verified 03/27/18 13:18) clarithromycin [From Biaxin] Adverse Reaction (Verified 03/27/18 13:18) Penicillins Adverse Reaction (Verified 03/27/18 13:18) Home Medications: Ambulatory Orders Albuterol Sulfate [Proventil Hfa] 6.7 gm IH QID PRN #1 hfa.aer.ad 12/18/15 Disposition Discussed With: Patient
[2018-03-27] MEDS ORDERED: SOLU-MEDROL 125 MG IVP STA (14:56)
[2018-03-27] MEDS ORDERED: ROCEPHIN 1 GM in SODIUM CHLORIDE 50 ML IV STA (14:57)
[2018-03-27] MEDS ORDERED: ROCEPHIN ONE (15:02)
--- NOTE | 2018-03-27 15:50 | PCM ---
- Chief Complaint Chief Complaint: Shortness of breath and Acute Respiratory distress. - History of Present Illness History of Present Illness: 47 yo WM seen by me in ER room 5 at 1530 PM. Patient presented to the Er today around 12 with acute respiratory distress. On tuesday am he awoke feeling fine. 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 Cleaned first one fine, then cleaned second one, noted air changed, moisture changed and he started having difficulty breathing. Shortness of breath, harder to catch breath. He noted NEVES. He smokes no cigarettes, no drugs of any kind. He has history of bronchitis. No history of asthma. As noted he felt fine and then had ?exposure to something and started having difficulty breathing on tuesday. He came home tuesday night, difficulty throughout weekend there, not worsening until tuesday. He stopped at daughter home and took neb treatment and he felt markedly better after albuterol. took some robitussin with honey and went to sleep. neb Around 4-5 pm, asleep by 8-9. He awoke again around 3 am with difficulty breathing. He did not repeat the neb treatment at that time. Took a shower, used inhaler and went back to sleep. Minimal improvement with inhaler. The patient came in today as this is not getting any better. He is having chest pain along the anterior chest bilaterally with coughing. this does radiate back and forth. He is coughing quite a bit, this is likely secondary to the strain from coughing. No pain with palpation of chest. I was called by Dr. Randhawa this afternoon around 3 PM with 47 YO WM with acute respiratory difficulty, hypoxia,. Came in and O2 was 89%. ABG showed acute uncompensated resp alk. He does not use medications regularly, no regular PCP. NO Drugs, NO ETOH, no smoking tobacco, + Dips. This am he called into work as he could not breath and dame into ER. Former heavy smoker 1-2 ppd x 20 years. HE has had increased work of breathing , orthopnea, +Mucus production, +coughing. Chest pain 4-5/10 aching and heaviness with deep breath and only with coughing. Not present with activity. No arm pain, no jaw pain. NO N/V/D. D/W Dr. Randhawa and ER nurse, evaluated nursing documentation. Does not meet SIRS criteria. Reported 2 days of URI, SOA , moderate severity. Reported coughing wheezing, denied chest pain initially ( he did report this to me today). Negative URI symptoms other than phlegm production. ROS reviewed. Malais, cough, SOA, wheezing. Ill appearing. nondestructive tester normal sinus. EKG interpretation Right axis deviation. ST normal. Improved after neb. 1400. Re-evaluated by 1500 vitals stable, NAD, warm and dry skin, neuro normal, CV RRR. 120min CC time noted. Labs reveiwed. CBC/CMP normal. ABG minimal changes, but he neves shave decreased O2. CKMB and troponin negative. Repeat ordered. - Review of Systems Constitutional: weakness, fatigue, loss of appetite. No: fever, chills, sweats , other Eyes: No: blurred vision, double-vision, discharge, itching, pain, redness, photophobia, other Ears: No: pain, bleeding, drainage, ringing, hearing loss, other Nose: No: bleeding, congestion, discharge, other Throat: No: pain, swelling, voice change, other Mouth: No: bleeding, pain, swelling, other Respiratory: cough, shortness of air, wheeze, pain with breathing (anterior chest) Cardiovascular: chest pain (left anterior chest, right anterior chest. ). No: left arm pain, diaphoresis, PND, orthopnea, edema, palpitations, syncope, other Gastrointestinal: No: abdominal pain, other, nausea, vomiting, diarrhea, melena , hematemesis, hematochezia, dysphagia, constipation Genitourinary: No: dysuria, hematuria, frequency, incontinence, flank pain, penile discharge, testicular pain, testicular swelling, other Neurological: No: headache, dizziness (mild), seizure, numbness, weakness, speech difficulty, problems with walking, tremor, fainting, other Musculoskeletal: No: pain, swelling in joints, other Skin: No: rash, pruritus, lacerations, wounds, bruising, other Immunology: No: hives, itching, frequent infections, difficulty healing, other Hematology: No: easy bruising, easy bleeding, swollen glands, other Endocrine: No: weight changes, cold intolerance, heat intolerance, excessive thirst, excessive hunger, polyuria, other Psychiatric: No: depression, anxiety, sleeplessness, hopelessness, suicidal, hallucinations, other Habits: tobacco use. No: substance use, alcohol use - Past Medical History Past Medical History: No chronic medications. Onychomycosis. HIsotry of bronchitis. Former smoker. - Past Surgical History Past Surgical History: I+D staph infection. Appendectomy 14 yr old. Knee surgery after bite from [employer] recluse age 27 yo. - Allergies Allergies/Adverse Reactions: Allergies Allergy/AdvReac Type Severity Reaction Status Date / Time ciprofloxacin [From Cipro] AdvReac Verified 03/27/18 13:18 ciprofloxacin HCl AdvReac Verified 03/27/18 13:18 [From Cipro] clarithromycin [From Biaxin] AdvReac Verified 03/27/18 13:18 Penicillins AdvReac Verified 03/27/18 13:18 - Medications Medications: Medications Generic Name Dose Route Start Last Admin Trade Name Freq PRN Reason Stop Dose Admin Albuterol/Ipratropium 1 vial 03/27/18 18:00 Duoneb NEB RTQ6H GABINO Sodium Chloride 1,000 mls @ 250 mls/hr 03/27/18 14:12 03/27/18 14:14 Sodium Chloride IV 03/27/18 18:11 250 mls/hr .Q4H STA Administration Sodium Chloride 1,500 mls @ 100 mls/hr 03/27/18 15:00 Sodium Chloride IV .Q15H GABINO Methylprednisolone Sodium Succinate 40 mg 03/27/18 21:00 Solu-Medrol 40 Mg IVP Q12HR GABINO Sodium Chloride 1 syr 03/27/18 13:24 03/27/18 14:14 Saline Flush IVF 1 syr PRN PRN Administration To flush IV - Family History Past Family History: Mother Living: Cancer breast, mastectomy, CAD. Father Living: healthy. Children: None. Siblings: 1 Brother history of asthma. - Social History Past Social History: Single with partner of 13 years. No children. Former smoker 20 year history of tobacco use. Quit ~2 years ago. NO ETOH now. + Chewing tobacco. - Vital Signs Temperature: 97.4 F Pulse Rate: 96 Respiratory Rate: 20 Blood Pressure: 127/80 O2 Sat by Pulse Oximetry: 93 - Body Composition Height: 6 ft 5 in Weight: 257 lb 0.944 oz Body Mass Index (BMI): 30.4 - Physical Examination HEENT: Vital Signs Temp Pulse Resp BP Pulse Ox 03/27/18 16:20 97.4 F L 96 H 20 127/80 93 L 03/27/18 13:14 97.4 F L 96 H 20 127/80 93 L Constitutional: Appearance-No acute distress, Consistent with stated age. Orientation- Oriented x 3, alertGait-Normal pace, normal arm movement. Build and Nutrition- Obese male General- Patient is pleasant and cooperative with the interview and exam. Integumentary: General-No rashes, ulcers or lesions. Palpation- Normal skin moisture/turgor. Skin is warm to touch, appropriate. Capillary refill is normal bilateral Upper and lower extremity. Head/Neck: Head- normocephalic and atraumatic. Neck- without visible/palpable lumps or pulsations. Palpation- No bony tenderness about head/neck along frontal, occipital, temporal, parietal, mastoid, jawline, zygoma, orbit or any other location. NO temporal artery tenderness. No TMJ tenderness. Neck Supple. Thyroid-No thyromegaly, no nodules Eye: Bilaterally PERRLA, EOMI. No discharge. Upper and lower eyelids are normal. Sclera/conjunctiva normal without discharge. Cornea is normal and clear. Lens is normal. Eyeball appears normal. No ciliary flushing, no conjunctival injection. ENMT: Pinna- normal without tenderness or erythema. External auditory canal Left- normal without erythema or discharge, no excessive cerumen. External auditory canal Right-normal without erythema or discharge, no excessive cerumen. TM left- Bolden/pearly, normal light reflex and anatomy TM Right- Bolden/ pearly, normal light reflex and anatomy Hearing Assessment-normal to conversational speech. Nose and sinus- No sinus tenderness along frontal/ maxillary region. External appearance normal and midline. Nares- bilateral quiet airflow, no discharge. Nasal mucosa- No bleeding noted and no ulcerations observed. Lane, moist. Turbinates non boggy. Lips- normal color, moist without cracks/lesions Oral Cavity/Palate- hard/soft palate intact without lesions, oral mucosa pink and moist. +Post nasal drainage, white frothy mucus posteriorly. Dentition assessed poor dentition, e/o chewing tobacco use, discussed appropriate oral care. Tongue normal midline. Oropharynx-mild pharyngeal erythema, +White frothy sputum Uvula midline. + post nasal drip. No exudate. Salivary glands- Non tender to palpation CHEST/LUNG: Inspection- symmetric chest wall no pectus deformity. Mildly increased effort, no distress on exam, not using accessory muscles. Palpation- nontender sternum, ribline. No abnormal pulsations. Auscultation- Breath sounds Diffuse coarse breath sounds, improve with cough. I:E closer to 1:1.5. Some tight sounding aeration diffusely with improvement in all lung hernandez. Patient noted improvement and easier respiration after neb. REduced/coarse tracheal sounds, bronchial sounds overlying sternum, Bronchovessicular sounds between scapulae posteriorly, vessicular breath sounds heard throughout periphery. Lungs are coarse, +Rales, +Rhonchi scattered. Adventitious sounds- wheezes, rales, and rhonchi. CARDIOVASCULAR: Carotid artery- normal, no bruits or abnormal pulsations. Jugular vein- no pulsations. Palpation/Percussion- Normal PMI, no palpable thrill Auscultation- Regular rate and rhythm. No murmur noted in sitting, supine positions. Extremities- no digital clubbing, cyanosis, edema, increased warmth. ABDOMEN: Inspection- normal and no visible pulsations. Normal contour. Auscultation- Bowel sounds normal, no abdominal bruits. Palpation/Percussion- soft, non-tender, no rebound tenderness, no rigidity (guarding), no jar tenderness, no masses. Liver-no hepatomegaly, Spleen no splenomegaly, Hernias - none. Rectal not examined. Peripheral Vascular: Upper extremity Left- Normal temperature with pink nailbeds and no ulcerations. Upper extremity Right- Normal temperature with pink nailbeds and no ulcerations. Lower extremity- Normal temperature with pink nailbeds and no ulcerations. DP pulses 2+ bilaterally. Pedal hair intact. Normal capillary refill. Edema- No edema. Extermities: +Onychomycosis bilaterally on feet. Prominent. Socks with holes in them, prominent callus bilateral heels/balls of feet. Musculoskeletal: Generalized-No generalized swelling or edema of extremities, no digital clubbing or cyanosis, neurovascularly intact all four extremities. Upper extremity- Symmetrical posture. No visible deformity. Normal sensation along medial and lateral upper extremity proximally and distally. NO tenderness overlying shoulder, lateral/medial epicondyle. Valve Repairer Reclamation 5/5 and strength 5/5 bilateral UE. Elbow palpated, no tenderness overlying olecranon. Normal supination, pronation to active/passive ROM and to resisted rotation. Bicep insertion/tricep insertion appear normal without obvious pathology. Rotator cuff evaluated and intact. Normal wrist ROM bilaterally. Normal hand movement, intrinsic muscles of hands normal. No tenderness to palpation of hands/wrists/ elbows. Lower extremity- Hip: Not tender to palpation, no pain, no swelling, edema or erythema of surrounding tissue, normal strength and tone. Normal appearing hip ROM bilaterally without pain. Knee: Knee ROM normal. No tenderness overlying trochanters, no tenderness about patella, quad tendon, patellar tendon. No tenderness at tibial tuberosity. Ankle: normal ROM not tender to palpation along medial/lateral malleolus. Foot: Normal movement of toes, no tenderness bilateral feet/toes. Normal foot type. Spine/Ribs- No deformities, masses or tenderness, no known fractures, normal strength, Normal ROM. Normal stability No tenderness along C/T/L spine. Normal appearing ROM about spine. Neurological: General- Moves all 4 extremities symmetrically. Symmetrical face and body posture. Cranial nerves- individually evaluated II-XII and intact. PERRLA, Normal EOMI, visual/special senses appear intact, Face is symmetrical and normal sensation/movement, normal tongue, normal strength/posture of neck musculature. Reflexes- intact with DTR 2+ patellar, Achilles, bicep, brachial, tricep. Ankle clonus normal with 2 beats. Strength- 5/5 bilateral UE and LE. Soft touch- intact bilateral UE and LE. Temperature sensation- intact bilateral UE and LE. Neuropsych: Oriented- Person, place, time. (AAOx3), Mood/affect- normal and congruent. Able to articulate well. Speech-Normal speech, normal rate, normal tone, normal use of language, volume and coherence. Thought content- normal with ability to perform basic computations and apply abstract thought/reason. Associations- intact, no SI/HI, no hallucinations, delusions, obsessions. Judgment/insight- Appropriate. Memory-Recall intact, remote and recent memory intact. Knowledge- Age appropriate fund of knowledge, concentration and attention span normal. Lymphatic: Head/Neck- normal size and non tender to palpation. Axillary- normal size and non tender to palpation. Femoral and Inguinal- normal size and non tender to palpation. ABG: Acute (uncompensated) primary respiratory alkalosis with a pH > 7.45 and HCO3 > 23, for acute (uncompensated) and a pH < 7.41 and HCO3 < 21, for chronic (compensated) - Lab/Tests/Diagnostic Imaging Lab/Tests/Diagnostic Imaging: Laboratory Last Values WBC 9.15 K/ul (4.2-10.2) 03/27/18 13:40 RBC 5.24 10^6/ul (4.70-6.10) 03/27/18 13:40 Hgb 15.0 g/dl (14.0-18.0) 03/27/18 13:40 Hct 45.1 % (42.0-52.0) 03/27/18 13:40 MCV 86.1 fl (80.0-94.0) 03/27/18 13:40 MCH 28.6 pg (27.0-31.0) 03/27/18 13:40 MCHC 33.3 (31.8-35.4) 03/27/18 13:40 RDW Coeff of Dwight 13.0 % (11.6-14.8) 03/27/18 13:40 Plt Count 247 10^3/uL (140-440) 03/27/18 13:40 Immature Gran % (Auto) 0.1 % (0.0-5.0) 03/27/18 13:40 Neut % (Auto) 64.4 03/27/18 13:40 Lymph % (Auto) 21.2 (10.0-50.0) 03/27/18 13:40 Geary % (Auto) 9.8 (0-10) 03/27/18 13:40 Eos % (Auto) 4.0 % (0.0-7.0) 03/27/18 13:40 Baso % (Auto) 0.5 % (0.0-3.0) 03/27/18 13:40 Immature Gran # (Auto) 0.0 (0.0-1.0) 03/27/18 13:40 Neut # (Auto) 5.9 K/ul (2.0-6.9) 03/27/18 13:40 Lymph # (Auto) 1.9 K/uL (0.60-3.4) 03/27/18 13:40 Geary # (Auto) 0.9 K/uL (0.4-2.0) 03/27/18 13:40 Eos # (Auto) 0.4 K/ul (0.0-0.7) 03/27/18 13:40 Baso # (Auto) 0.1 K/uL (0-0.2) 03/27/18 13:40 PT 9.3 SEC (9.3-11.0) 03/27/18 13:40 INR 0.93 SI (0.0-3.9) 03/27/18 13:40 Puncture Site R brach 03/27/18 13:30 O2 Saturation 89.0 % (95-100) L 03/27/18 13:30 ABG pH 7.437 (7.35-7.45) 03/27/18 13:30 ABG pCO2 34.2 mmHg (35-45) L 03/27/18 13:30 ABG pO2 55.0 mmHg (85-100) L* 03/27/18 13:30 ABG HCO3 23.0 (22.0-26.0) 03/27/18 13:30 ABG Total CO2 24 (22.0-28.0) 03/27/18 13:30 ABG Base Excess -1 (-2.0-2.0) 03/27/18 13:30 Nguyễn Test + 03/27/18 13:30 FiO2 % 21.0 % 03/27/18 13:30 Sodium 137 mmol/L (136-145) 03/27/18 13:40 Potassium 4.3 mmol/L (3.5-5.1) 03/27/18 13:40 Chloride 103 mmol/L (98-107) 03/27/18 13:40 Carbon Dioxide 24 mmol/L (21-32) 03/27/18 13:40 Anion Gap 14.3 03/27/18 13:40 BUN 11 mg/dL (7-18) 03/27/18 13:40 Creatinine 0.94 mg/dL (0.60-1.10) 03/27/18 13:40 Estimated GFR (MDRD) 87.00 mL/min 03/27/18 13:40 BUN/Creatinine Ratio 11.70 03/27/18 13:40 Glucose 90 mg/dL (70-100) 03/27/18 13:40 Calcium 9.7 mg/dL (8.2-10.2) 03/27/18 13:40 Total Bilirubin 0.6 mg/dL (0.00-1.20) 03/27/18 13:40 AST 21 U/L (15-37) 03/27/18 13:40 ALT 19 U/L (12-78) 03/27/18 13:40 Alkaline Phosphatase 106 U/L (50-136) 03/27/18 13:40 Total Creatine Kinase 134 U/L 03/27/18 13:40 CK-MB (CK-2) 1.7 ng/ml (0.0-3.6) 03/27/18 13:40 CK-MB (CK-2) % 1.55356 03/27/18 13:40 Troponin I < 0.0100 ng/ml (0.0000-0.4000) 03/27/18 13:40 Total Protein 7.8 g/dL (6.4-8.2) 03/27/18 13:40 Albumin 3.9 g/dL (3.4-5.0) 03/27/18 13:40 Globulin 3.9 03/27/18 13:40 Albumin/Globulin Ratio 1.00 03/27/18 13:40 CT: No PE. Chronic scarring left mid lung. Atypical anatomicla varient. 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 - Assessment (1) COPD exacerbation Status: Acute Code(s): J44.1 - CHRONIC OBSTRUCTIVE PULMONARY DISEASE W (ACUTE ) EXACERBATION SNOMED Code(s): 741937484 (2) Former smoker Status: Acute Code(s): Z87.891 - PERSONAL HISTORY OF NICOTINE DEPENDENCE SNOMED Code(s): 7125869 (3) Mid sternal chest pain Status: Acute Code(s): R07.89 - OTHER CHEST PAIN SNOMED Code(s): 10563677 (4) Right axis deviation Status: Acute Code(s): R94.31 - ABNORMAL ELECTROCARDIOGRAM [ECG] [EKG] SNOMED Code(s): 42550950 (5) Chewing tobacco nicotine dependence Status: Acute Code(s): F17.220 - NICOTINE DEPENDENCE, CHEWING TOBACCO, UNCOMPLICATED SNOMED Code(s): 61603533, 66806995 (6) BMI greater than 30 Status: Acute Code(s): XUX8316 - SNOMED Code(s): 003772558 - Plan Plan: COPD Exacerbation: Suspect acute bronchitis with possibility of COPD exacerbation. We reviewed his smoking history. Smoking cessation and tobacco avoidance highly encouraged today (both active and passive). We reviewed GOLD criteria together. Gold defines exacerbation of COPD as acute event leading to worsening of respiratory symptoms with 3 cardinal features: increased cough freq /severity, sputum production volume/quality, worsened Dyspnea. He has exhibited 3/3 of these. Risk factors reviewed for exacerbations. He has no advancing age , no recent history of abx use, No prev hospitalization within past 12 months, no known heart disease, no known CHF, no known DM. We talked about his exposures at work, +Condensor, + water, + temperature changes, +Allergens. I will check for Legionella and Strep pneumo. He did get dose of rocephin. With allergy to biaxin, I will opt for doxy 100 PO BID. I will treat with prednisone 40 PO and stop the steroid IV. We discussed PO has been shown to be just as good as IV and he is [place] pay and this would be cheaper. Duoneb q 6 hours. He can have albuterol in between them. We discussed respiratory infections are the most likely trigger in up to 70% of cases to include viral processes such as Rhino (warmer months), mejia, adeno, parainfluenza (cooler months), allergic process, viral/bacterial pneumonia. He felt fine before exposure at work. CT PE was negative. We discussed studies have shown benefit to bronchodilators (grade 1B) and show reduced time to resolution of cough. Anticholinergic agents are often used in combination as studies show enhanced bronchodilation beyond that seen by either agent alone. He has no history of BPH or similar. Systemic glucocorticoids have been shown to have beneficial effect. Recommendations include dosing steroid equivalent to prednisone 40 mg daily x 5 days. Inhaled GC are of minimal benefit in acute exacerbation. We discussed that studies suggest use of abx is controversial. These are recommended to be avoided for simple bronchitis. The patient voiced understanding. Common abx include doxycycline, FQ, 3rd gen Cephalosporin with or without macrolide. Discussed pros and cons of steroid use both injectible and oral forms. Role of alpha 1 antitrypsin discussed with diagnosis and history of repeat bronchitis. R/B/A to orders listed below d/w patient. - Doxycycline 100mg po BID - Duoneb QID - Albuterol in between up to q 4 hours pRN - Prednisone 40mg PO daily - Spirometry in 1 month - Needs to establish with PCP - Would recommend Alpha 1 Antitrypsin testing as outpatient - Legionella Urine Ag - Strep Pneumo Urine Ag. - Would consider pneumonia vaccine in next 1 week - Yearly flu vaccine in next 2-4 weeks. - O2 titrate to 90% - Tylenol 500 QID PRN pain. Chewing Tobacco: Tobacco Cessation discussed today for 2 minutes. We reviewed lifestyle choices and discussed quitting. Ready to quit status discussed. The risks and hazards of continued tobacco abuse were discussed with the patient today and total tobacco cessation as recommended. It was clearly and unambiguously explained that continued tobacco usage will adversely affect overall morbidity and mortality of the patient. Patient was informed that tobacco use can lead to numerous cancers, worsening of cardiovascular and pulmonary systems and that lung damage is often permanent and irreversible. I advised the patient to inform me if any further assistance is requested, as we can offer counseling services, nicotine replacement inhaled, patch, lozenge, gum , or prescription medications to include Chantix or Wellbutrin for assistance. I will reassess the interest in tobacco cessation at the next and all subsequent visits. - Nicoderm 14mg daily. Atypical Chest pain: Abnl EKG with anterior chest symptoms suspect cough related - Stress Echo in am - NPO after midnight DVT Prophy: Lovenox Subcutaneously 40mg daily. [place] Score >2. Respiratory distress upon arrival, better now, ?infection. Will treat even though only likely 24 hour obs. Diet: Regular Activity: Up ad vincent. NO fall risk noted. No dizziness, no syncope, no falls. - Ad vincent - Early mobility. Disposition: Likely COPD exacerbation. Would like to get stress in am as abnl EKG and reported chest pain. Admit to observation status. Work with hospital to see if he qualifies for medicaid. Would like to have him f/u with provider as outpatient for f/u as he has no PCP. Discussed to consider alpha 1 testing as outpatient. 70 minutes spent on this admission today. Reviewed Er note, labs, discussed case with ER provider, reviewed labs, imaging, EKG, ABG.
[2018-03-27] MEDS: DUONEB NEB SCH ×2 (17:00→23:25)
[2018-03-27] MEDS ORDERED: ALBUTEROL 0.083% NEB NEB PRN (17:17)
[2018-03-27] MEDS: DOXYCYCLINE HYCLATE PO SCH ×2 (17:18→21:21)
[2018-03-27] MEDS: LOVENOX SUBCUT SCH (17:18)
[2018-03-27] MEDS ORDERED: TYLENOL PO PRN (17:24)
[2018-03-27] MEDS ORDERED: NICODERM 14 MG TD SCH (18:00)
[2018-03-27] MEDS: SODIUM CHLORIDE 1,500 ML IV SCH (18:00)
[2018-03-27] MEDS ORDERED: SOLU-MEDROL 40 MG IVP SCH (21:00)
[2018-03-28] MEDS: SODIUM CHLORIDE 1,500 ML IV SCH ×2 (03:33→06:16)
[2018-03-28] MEDS: DUONEB NEB SCH (04:30)
[2018-03-28] MEDS ORDERED: PREDNISONE PO SCH (08:00)
[2018-03-28] MEDS: LOVENOX SUBCUT SCH (08:33)
[2018-03-28] MEDS: DOXYCYCLINE HYCLATE PO SCH (08:33)
--- NOTE | 2018-03-28 08:46 | STRESSECHO ---
Date of Test: 03/28/18 Ordering Physician: DR. ALICJA BLAIR Occupation : [employer] Reason for Exam: CHEST PAIN, ATYPICAL EKG, SOB Smoking History: QUIT SMOKER Height: 77" Weight: 257 LBS Current Medications: ALBUTEROL INHALER Target Heart Rate: 148/175 Resting EKG: SINUS RHYTHM/ NO ACUTE CHANGES S-T SEGMENT STAGE MPH/GRADE HEART RATE BPM BLOOD PRESSURE MMHG RHYTHM +/- ELEVATION DEPRESSION SYMPTOMS,COMMENTS AT REST 70 142/90 SR X NONE 1 1.7/10% 116 138/90 SR X NONE 2 2.5/12% 130 132/88 SR X NONE 3 3.4/14% 4 4.2/16% 5 5.0/18% Immediately After 150 SR X SHORT OF BREATH Minutes Post Exercise 5:00 75 122/90 SR X NO COMMENTS Minutes Post Exercise DURATION OF EXERCISE: 7:02 MAXIMUM HEART RATE REACHED: 150 BPM REASON FOR TERMINATION: SHORT OF BREATH 91% OXYGEN SATURATION WITH EXERCISE/ 90% ON ROOM AIR AT REST INTERPRETATION: 1. NO EVIDENCE OF ISCHEMIA BY ST-T WAVE 2. NO CHEST PAIN OR CHEST DISCOMFORT 3. BLOOD PRESSURE RESPONSE: BORDERLINE AT REST AND WITH EXERCISE 4. NO ARRHYTHMIAS NORMAL LEFT VENTRICULAR CONTRACTILITY--RESTING AND POST EXERCISE MTDD
--- NOTE | 2018-03-28 08:52 | ECHOSTRESS ---
Date of Exam: 03/28/18 Ordering Physician: DR. ALICJA BLAIR Reason for Echo: ATYPICAL EKG, SOB, CHEST PAIN, STRESS TEST--NO ISCHEMIA M-Mode Normal Adult Results LV Dimensions Normal Adult Results AoV Opening excursions >1.6 LVEDD-base- 3.5-5.8 Ao root dimensions 2.0-3.7 LVESD-base- 3.1-4.6 L. Atrium dimensions 1.9-3.8 Post. Wall thickness 0.8-1.1 IV septum (thickness) 0.7-1.2 Post. Wall excursion 0.72-1.3 Septal motion Systolic motion R. Ventricular cavity 1.5-2.0 LVEF 60% Paradoxical septal wall motion 2-D: NORMAL LEFT VENTRICULAR CONTRACTILITY--RESTING AND POST EXERCISE M-MODE: MV: AV: TV: PV: CHAMBER SIZE: WALL MOTION: NORMAL LEFT VENTRICULAR CONTRACTILITY--RESTING AND POST EXERCISE PERICARDIUM: INTERPRETATION: 1. NORMAL LEFT VENTRICULAR CONTRACTILITY--RESTING AND POST EXERCISE MTDD
--- NOTE | 2018-03-28 09:26 | PCM.DC ---
Final Diagnosis: COPD EXACERBATION ACUTE RESPIRATORY DISTRESS ATYPICAL CHEST PAIN STRESS TEST NEGATIVE FORMER SMOKER (1) COPD exacerbation Status: Acute Code(s): J44.1 - CHRONIC OBSTRUCTIVE PULMONARY DISEASE W (ACUTE ) EXACERBATION SNOMED Code(s): 813175922 (2) Former smoker Status: Chronic Code(s): Z87.891 - PERSONAL HISTORY OF NICOTINE DEPENDENCE SNOMED Code(s): 5920760 (3) Mid sternal chest pain Status: Acute Code(s): R07.89 - OTHER CHEST PAIN SNOMED Code(s): 27131726 (4) Right axis deviation Status: Acute Code(s): R94.31 - ABNORMAL ELECTROCARDIOGRAM [ECG] [EKG] SNOMED Code(s): 70872200 (5) Chewing tobacco nicotine dependence Status: Acute Code(s): F17.220 - NICOTINE DEPENDENCE, CHEWING TOBACCO, UNCOMPLICATED SNOMED Code(s): 73680375, 04810660 (6) BMI greater than 30 Status: Acute Code(s): VVC2247 - SNOMED Code(s): 361499377 Reason for Hospitalization: 1. Acute respiratory distress 2. Work/chemical/contaminant exposure 3. Suspected COPD exacerbation 4. Right axis deviation EKG/Chest pain reported to ER. 5. Former smoker 6. BMI 30 7. Nicotine chewing tobacco use. 8. Biaxin allergy (macrolide) Prognosis at Discharge: Good/Stable: Markedly improved with nebs/steroids/Abx. Condition at Discharge: Markedly improved/stable. Medications at Discharge: Ambulatory Orders Medication Instructions Recorded Albuterol Sulfate [Proventil Hfa] 6.7 gm IH QID PRN #1 hfa.aer.ad 12/18/15 Albuterol Sulfate 0.083% Neb 1 vial NEB RTQ4H PRN 7 Days #75 ml 03/28/18 [Albuterol 0.083% Neb] Doxycycline Hyclate 100 mg PO Q12HR 5 Days #10 capsule 03/28/18 Ipratropium [place] 0.02% Neb 1 vial NEB RTQ6H 5 Days #25 03/28/18 [Atrovent 0.02% Neb] vial.neb Prednisone 40 mg PO DAILYWM 5 Days #10 tablet 03/28/18 Lab/Diagnostics: Laboratory Last Values WBC 9.02 K/ul (4.2-10.2) 03/28/18 06:00 RBC 4.66 10^6/ul (4.70-6.10) L 03/28/18 06:00 Hgb 13.2 g/dl (14.0-18.0) L 03/28/18 06:00 Hct 40.3 % (42.0-52.0) L 03/28/18 06:00 MCV 86.5 fl (80.0-94.0) 03/28/18 06:00 MCH 28.3 pg (27.0-31.0) 03/28/18 06:00 MCHC 32.8 (31.8-35.4) 03/28/18 06:00 RDW Coeff of Dwight 13.0 % (11.6-14.8) 03/28/18 06:00 Plt Count 242 10^3/uL (140-440) 03/28/18 06:00 Immature Gran % (Auto) 0.3 % (0.0-5.0) 03/28/18 06:00 Neut % (Auto) 79.7 03/28/18 06:00 Lymph % (Auto) 12.9 (10.0-50.0) 03/28/18 06:00 [place] % (Auto) 7.0 (0-10) 03/28/18 06:00 Eos % (Auto) 0.0 % (0.0-7.0) 03/28/18 06:00 Baso % (Auto) 0.1 % (0.0-3.0) 03/28/18 06:00 Immature Gran # (Auto) 0.0 (0.0-1.0) 03/28/18 06:00 Neut # (Auto) 7.2 K/ul (2.0-6.9) H 03/28/18 06:00 Lymph # (Auto) 1.2 K/uL (0.60-3.4) 03/28/18 06:00 [place] # (Auto) 0.6 K/uL (0.4-2.0) 03/28/18 06:00 Eos # (Auto) 0.0 K/ul (0.0-0.7) 03/28/18 06:00 Baso # (Auto) 0.0 K/uL (0-0.2) 03/28/18 06:00 PT 9.3 SEC (9.3-11.0) 03/27/18 13:40 INR 0.93 SI (0.0-3.9) 03/27/18 13:40 Puncture Site R brach 03/27/18 13:30 O2 Saturation 89.0 % (95-100) L 03/27/18 13:30 ABG pH 7.437 (7.35-7.45) 03/27/18 13:30 ABG pCO2 34.2 mmHg (35-45) L 03/27/18 13:30 ABG pO2 55.0 mmHg (85-100) L* 03/27/18 13:30 ABG HCO3 23.0 (22.0-26.0) 03/27/18 13:30 ABG Total CO2 24 (22.0-28.0) 03/27/18 13:30 ABG Base Excess -1 (-2.0-2.0) 03/27/18 13:30 Nguyễn Test + 03/27/18 13:30 FiO2 % 21.0 % 03/27/18 13:30 Sodium 140 mmol/L (136-145) 03/28/18 06:00 Potassium 4.6 mmol/L (3.5-5.1) 03/28/18 06:00 Chloride 107 mmol/L (98-107) 03/28/18 06:00 Carbon Dioxide 26 mmol/L (21-32) 03/28/18 06:00 Anion Gap 11.6 03/28/18 06:00 BUN 14 mg/dL (7-18) 03/28/18 06:00 Creatinine 0.84 mg/dL (0.60-1.10) 03/28/18 06:00 Estimated GFR (MDRD) 99.00 mL/min 03/28/18 06:00 BUN/Creatinine Ratio 16.66 03/28/18 06:00 Glucose 141 mg/dL (70-100) H D 03/28/18 06:00 Hemoglobin A1c 5.7 (4.8-6.0) 03/28/18 05:00 Calcium 9.4 mg/dL (8.2-10.2) 03/28/18 06:00 Total Bilirubin 0.3 mg/dL (0.00-1.20) 03/28/18 06:00 AST 13 U/L (15-37) L 03/28/18 06:00 ALT 14 U/L (12-78) 03/28/18 06:00 Alkaline Phosphatase 87 U/L (50-136) 03/28/18 06:00 Total Creatine Kinase 64 U/L 03/28/18 06:00 CK-MB (CK-2) 1.7 ng/ml (0.0-3.6) 03/27/18 13:40 CK-MB (CK-2) % 1.51972 03/27/18 13:40 Troponin I < 0.0100 ng/ml (0.0000-0.4000) 03/28/18 06:00 Total Protein 7.0 g/dL (6.4-8.2) 03/28/18 06:00 Albumin 3.4 g/dL (3.4-5.0) 03/28/18 06:00 Globulin 3.6 03/28/18 06:00 Albumin/Globulin Ratio 0.94 03/28/18 06:00 Urine Color Yellow (YELLOW) 03/27/18 18:07 Urine Clarity Clear (CLEAR) 03/27/18 18:07 Urine pH 6.0 (5-9) 03/27/18 18:07 Ur Specific [place] <=1.005 (1.005-1.030) 03/27/18 18:07 Urine Protein Negative (NEGATIVE) 03/27/18 18:07 Urine Glucose (UA) Negative (NEGATIVE) 03/27/18 18:07 Urine Ketones Negative (NEGATIVE) 03/27/18 18:07 Urine Blood Trace-intact (NEGATIVE) 03/27/18 18:07 Urine Nitrite Negative (NEGATIVE) 03/27/18 18:07 Urine Bilirubin Negative (NEGATIVE) 03/27/18 18:07 Urine Urobilinogen 0.2 (0.2) 03/27/18 18:07 Ur Leukocyte Esterase Negative (NEGATIVE) 03/27/18 18:07 Urine Microscopic RBC 0-2 (0-2) 03/27/18 18:07 Ur Squamous Epith Cells Not present (0-5) 03/27/18 18:07 Miscellaneous Test 03/27/18 18:07 Stress Echo: No E/O isechemia by ST-T wave, no chest pain or discomfort. BP response borderline at rest and w/ exercise. No arrhythmias, normal LV contractility resting and post exercise. CT Chest: Atypical aortic arch vertebral, celiac, hepatiic/splenic artery anatomy else no acute findings. Education Provided to Patient and Family: 1. Neb treatments/COPD exacerbation. - Albuterol Q 4 hours x 1 week - Ipratropium 4x daily x 1 week - Doxycycline 2x daily x 1 week Take with full 8-12 oz water avoid excess sunlight due to burning - Prednisone 2 po daily x 1 week. 2. Needs to get insurance 3. Spirometry in 1 month 4. Alpha 1 antitrypsin testing to be completed 5. Needs OV in 1 week. Follow-ups: 1. OV with me in 1 week. Disposition: HOME SELF-CARE Hospital Course: Patient presented yesterday afternoon with acute respiratory distress and chest pain worse with deep inhalation and cough. ?Work exposure, working in [employer] and having temp changes, moisture/humidity changes and he noted since tuesday harder to breath. Prominent smoking history. We discussed avoidance of smoking/tobacco smoke of all types. Consider wearing mask at work, avoidance of allergies discussed. He was given neb in ER, did well. We continue ipratropium QID and albuterol Q 4 hours through night. Doxy added as he had allergy to cipro/biaxin and I wanted abx coverage. We did send urine for legionnaires and for strep pneumo urine. Labs looked okay. He had ?Right axis deviation on EKG, chest pain reported, CT negative for PE> With chest pain and ER concern for cardiac pain we did order stress echo, which returned negative this am. He was feeling well this am, labs were stable and overall he felt amazingly better with steroids. We stopped IV steroid and used oral steroids. We will d/c him home on albuterol Q4HR x 1 week, ipratropium QID x 1 week ( monitor for difficulty urinating), doxy 1 po bid x 5 days (avoid excess sunlight and drink with full 8-12 oz water), prednisone 40mg daily x 5 days. See me in office in next 1 week. Business card given to him. I will print out his home med list. Written note for work provided. I would like his meds to go to [facility] for doxy, albuterol/ipratropium and prednisone at [facility]. Coupons provided. Nicotine avoidance d/w patient and recommended. He left hospital feeling much better. 24 hour obs did the patient very well. Today we spent >30 minutes in discharge planning/prep/education. Day of discharge physical exam: Constitutional: Appearance-No acute distress, Consistent with stated age. Eating well, breathing calmly talking in full sentences. Orientation- Oriented x 3, alert Gait-Normal pace, normal arm movement. Build and Nutrition- Obese male General- Patient is pleasant and cooperative with the interview and exam. Integumentary: General-No rashes, ulcers or lesions. Palpation- Normal skin moisture/turgor. Skin is warm to touch, appropriate. Capillary refill is normal bilateral Upper and lower extremity. Head/Neck: Head- normocephalic and atraumatic. Neck- without visible/palpable lumps or pulsations. Palpation- No bony tenderness about head/neck along frontal, occipital, temporal, parietal, mastoid, jawline, zygoma, orbit or any other location. NO temporal artery tenderness. No TMJ tenderness. Neck Supple. Thyroid-No thyromegaly, no nodules Eye: Bilaterally PERRLA, EOMI. No discharge. Upper and lower eyelids are normal. Sclera/conjunctiva normal without discharge. Cornea is normal and clear. Lens is normal. Eyeball appears normal. No ciliary flushing, no conjunctival injection. ENMT: Nasal mucosa- No bleeding noted and no ulcerations observed. [facility], moist. Turbinates non boggy. Lips- normal color, moist without cracks/lesions Oral Cavity/Palate- hard/soft palate intact without lesions, oral mucosa pink and moist. +Post nasal drainage, white frothy mucus posteriorly. Dentition assessed poor dentition, e/o chewing tobacco use, discussed appropriate oral care. Tongue normal midline. Oropharynx-mild pharyngeal erythema, +White frothy sputum Uvula midline. + post nasal drip. No exudate. Salivary glands- Non tender to palpation CHEST/LUNG: Inspection- symmetric chest wall no pectus deformity. Normal effort this am, no distress on exam, not using accessory muscles. Palpation- nontender sternum, ribline. No abnormal pulsations. Auscultation- Breath sounds Diffuse coarse breath sounds, improved aeration. Some tight sounding aeration diffusely with improvement in all lung hernandez. Improved. +Rales, +Rhonchi scattered. Adventitious sounds- wheezes, rales, and rhonchi. CARDIOVASCULAR: Carotid artery- normal, no bruits or abnormal pulsations. Jugular vein- no pulsations. Palpation/Percussion- Normal PMI, no palpable thrill Auscultation- Regular rate and rhythm. No murmur noted in sitting, supine positions. Extremities- no digital clubbing, cyanosis, edema, increased warmth. ABDOMEN: Inspection- normal and no visible pulsations. Normal contour. Auscultation- Bowel sounds normal, no abdominal bruits. Palpation/Percussion- soft, non-tender, no rebound tenderness, no rigidity (guarding), no jar tenderness, no masses. Liver-no hepatomegaly, Spleen no splenomegaly, Hernias - none. Rectal not examined. Peripheral Vascular: Upper extremity Left- Normal temperature with pink nailbeds and no ulcerations. Upper extremity Right- Normal temperature with pink nailbeds and no ulcerations. Lower extremity- Normal temperature with pink nailbeds and no ulcerations. DP pulses 2+ bilaterally. Pedal hair intact. Normal capillary refill. Edema- No edema. Musculoskeletal: Generalized-No generalized swelling or edema of extremities, no digital clubbing or cyanosis, neurovascularly intact all four extremities. Neurological: General- Moves all 4 extremities symmetrically. Symmetrical face and body posture. Cranial nerves- individually evaluated II-XII and intact. PERRLA, Normal EOMI, visual/special senses appear intact, Face is symmetrical and normal sensation/movement, normal tongue, normal strength/posture of neck musculature. Reflexes- intact with DTR 2+ patellar, Achilles, bicep, brachial, tricep. Ankle clonus normal with 2 beats. Strength- 5/5 bilateral UE and LE. Soft touch- intact bilateral UE and LE. Temperature sensation- intact bilateral UE and LE. Neuropsych: Oriented- Person, place, time. (AAOx3), Mood/affect- normal and congruent. Able to articulate well. Speech-Normal speech, normal rate, normal tone, normal use of language, volume and coherence. Thought content- normal with ability to perform basic computations and apply abstract thought/reason. Associations- intact, no SI/HI, no hallucinations, delusions, obsessions. Judgment/insight- Appropriate. Memory-Recall intact, remote and recent memory intact. Knowledge- Age appropriate fund of knowledge, concentration and attention span normal. Lymphatic: Head/Neck- normal size and non tender to palpation. Axillary- normal size and non tender to palpation. Femoral and Inguinal- normal size and non tender to palpation. Plan: 1. D/C Home 2. Business card given to patient to establish care. F/U 1 week 3. Albuterol q 4 hours neb 4. Ipratropium QID neb 5. Doxy hycalate 100 BID x 5 days 6. Prednisone 40 x 5 days 7. Mask with exposures at work. 8. Nicotine avoidance. 9. F/U if worsening, return to ER if worsening. >30 minutes spent in discharge/coordination of care.
[2018-03-28 09:44] VITALS: BP 116/80; TEMP 98
[2018-03-28] MEDS ORDERED: NICODERM 14 MG TD SCH (21:00)
== END 2018-03-28 09:51 | disposition home or self-care (01) ==
LOC: ED 13:14 → SCU 14:58
PROVIDERS: ADMIT Family Medicine; ATTEND Family Medicine
DX: R06.02 Shortness of breath (principal); R06.00 Dyspnea, unspecified; R53.81 Other malaise; J44.1 Chronic obstructive pulmonary disease with (acute) exacerbation; Z87.891 Personal history of nicotine dependence; R07.89 Other chest pain; F17.220 Nicotine dependence, chewing tobacco, uncomplicated
CPT/HCPCS: 36415; 80053; 81001; 82550; 82553; 82803; 83036; 84484; 85025; 85610; 87449; 93005; 93010; 94640; 96361; 96365; 96375; 99284

== ENCOUNTER 2019-01-05 18:14 | Outpatient (CLI) ==
[2019-01-05 18:37] VITALS: BMI 32.4
== END 2019-01-05 18:21 | disposition critical access hospital (66) ==
LOC: AMBL 18:14
PROVIDERS: ATTEND Internal Medicine Geriatric Medicine
DX: R20.0 Anesthesia of skin (principal); M54.2 Cervicalgia

== ENCOUNTER 2019-01-05 18:27 | Emergency (ER) ==
[2019-01-05 18:37] VITALS: TEMP 99.9; BMI 32.4
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
[2019-01-05 19:43] VITALS: BP 144/95
[2019-01-05] MEDS: SODIUM CHLORIDE 1,000 ML IV STA (20:12)
[2019-01-05] MEDS: TORADOL IVP STA (20:26)
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
== END 2019-01-05 22:35 | disposition home or self-care (01) ==
LOC: ED 18:27
DX: M54.2 Cervicalgia (principal); M54.9 Dorsalgia, unspecified; M25.551 Pain in right hip; M79.651 Pain in right thigh; V89.2XXA Person injured in unspecified motor-vehicle accident, traffic, initial encounter
CPT/HCPCS: 36415; 80053; 85025; 93005; 93010; 96361; 96374; 99283

== ENCOUNTER 2019-01-18 11:23 | Emergency (ER) ==
[2019-01-18 11:32] VITALS: BP 128/88; TEMP 97.4; BMI 31.4
[2019-01-18] MEDS ORDERED: TETRACAINE 0.5% OPTH SOL OP STA (11:45)
[2019-01-18] MEDS ORDERED: FUL-GLO OP STA (11:47)
[2019-01-18] MEDS ORDERED: EYE-STREAM OP STA (11:48)
--- NOTE | 2019-01-18 11:48 | ED.PDOC ---
General ED Provider: Dr. JUDITH MCBRIDE Chief Complaint: Eye Problem Stated Complaint: CC: Severe RT Eye Pain and Severe Blurring of Vision-unable to see from Rt Eye. HPI: States 2 days ago was outside and felt something fly into his rt Eye. Noted nats flying in his vicintiy. Immediately felt discomfort so used wet paper towel and saline in attempt to irrigate Rt EYE. Did not notice any object dislodged or flushed from Rt Eye but it felt better and he thought whatever it was it had been flused out.The following day the pain worsened and is very painful swollen, red and draining pus. Still has white pus oozing from rt eye and has intense burning sensation in upper lid and globe. Pain described as 9/10 Time Seen by Physician: 11:35 Mode of Arrival: Walk-In Information Source: Patient Primary Care Provider: ALICJA BLAIR Nursing and Triage Documentation Reviewed and Agree: Yes Does patient meet sepsis criteria?: No System Inflammatory Response Syndrome: Not Applicable Sepsis Protocol: For patient's 13 years and over: Temp is 96.8 and below OR 101 and greater Pulse >90 BPM Resp >20/minute Acutely Altered Mental Status Are patient's symptoms suggestive of a new infection, such as: -Pneumonia -Skin, Soft Tissue -Endocarditis -UTI -Bone, Joint Infection -Implantable Device -Acute Abdominal Infection -Wound Infection -Meningitis -Blood Stream Catheter Infection -Unknown EENT Complaint Exam - Eye Complaint/Exam Onset/Duration: 2 days Symptoms Are: Still present Timing: Constant Initial Severity: Moderate Current Severity: Severe Location: Right Character: Reports: Throbbing, Foreign body sensation Aggravating: Reports: Light Alleviating: Reports: None Associated Signs and Symptoms: Reports: Photophobia, Clear drainage, Purulent drainage, Vision impairment, Swelling. Denies: Fever Related History: Denies: Similar episode Eye Surgical History: Reports: None Penetrating Injury Risk Factors: None Globe Rupture Risk Factors: None Acute Glaucoma Risk Factors: Eye Inflammation Optic Artery Occlusion Risk Factors: None Visual Acuity Left Eye: 20/20 Extraocular Movement: Abnormal Orbit Findings: Normal Globe Findings: Intact Conjunctival Findings: Red, Exudate Fluorescein Uptake: No Fundi: Not visualized Slit Lamp Used: No Differential Diagnoses: Conjunctivitis Review of Systems - Review Of Systems Constitutional: Reports: No symptoms Eyes: Reports: Blindness (OD -unable to see/very blurred), Blurred vision (OD), Vision change (OD), Drainage (OD), Decreased acuity, Foreign body sensation (OD) , Inflammation (OD), Pain (OD), Photophobia (PFELT SOMETHING GO INTO HIS RIGHT EYE. USED WET PAPER TOWEL AND SALINE TO IRRIGATE AND GET OBJECT OUT OF EYE. PT THOUGHT HE HAD IT OUT BUT NOW EYE IS IS SWOLLEN AND RED. PT HAS WHITE PUSS COMING FROM EYE AND HAS A BURNING FEELING IN INFECTED AREA. ), Contact lenses. Denies: Previous injury, Shadows Ears, Nose, Mouth, Throat: Reports: No symptoms Respiratory: Reports: No symptoms Cardiac: Reports: No symptoms GI: Reports: No symptoms : Reports: No symptoms Musculoskeletal: Reports: No symptoms Skin: Reports: No symptoms Neurological: Reports: No symptoms Endocrine: Reports: No symptoms Hematologic/Lymphatic: Reports: No symptoms All Other Systems: Reviewed and Negative Past Medical History - Past Medical History Previously Healthy: Yes Endocrine: Reports: None Cardiovascular: Reports: None Respiratory: Reports: None Hematological: Reports: None Gastrointestinal: Reports: None Genitourinary: Reports: None Neuro/Psych: Reports: None Musculoskeletal: Reports: None Cancer: Reports: None - Surgical History General Surgical History: Reports: Appendectomy - Family History Family History: Reports: Unknown - Social History Smoking Status: Former smoker Hx Substance Use: No Alcohol Screening: None Physical Exam - Physical Exam Appearance: Ill-appearing Pain Distress: Moderate Eyes: Conjunctiva inflammed (EOM full OS , OD sluggish. Visual acuity OD non obtainable, Purulent drainage OD), Right pupil size (2mm), Left pupil size (3 mm ) ENT: Ears normal, Nose normal, Oropharynx normal Respiratory: Airway patent Cardiovascular: RRR, Pulses normal, No rub, No murmur GI/: Soft, Nontender, No masses, Bowel sounds normal, No Organomegaly Musculoskeletal: Normal strength, ROM intact, No edema, No calf tenderness Skin: Warm, Dry, Normal color Procedures - Eye Procedure Tetracaine Drops Administered: Yes (4 gtts total) Eye FB Removal: Other (None observed) Foreign Body Completely Removed: No Eye Irrigated: Yes (Fluroscein stained eye -no evidence of corneal abrasion or conjunct uptake) - Additional Procedures Additional Procedures: Other (Fluroscein staining-Black light exam completed - no observed foreign object) Re-Evaluation - Re-Evaluation Time of Re-Evaluation: 13:45 Status: Improved Vital Signs Stable: Yes Pain Level: 6/10 since toradol injection ( much improvement ) Not much after dilaudid Appearance: NAD Lungs: Clear Skin: Warm and Dry Neuro: Alert and Oriented X3 CV: RRR Physician Notification - Case Discussed Physician Notified: Dr Paige-call center/called offic and instructed to send pt to office Time of Notification: 12:40 (Called back 1300.) Critical Care Note - Critical Care Note Total Time (mins): 60 Course - Course Vital Signs: Temp Pulse Resp BP Pulse Ox 01/18/19 11:24 97.4 F L 70 20 128/88 98 Departure - Departure Time of Disposition: 13:10 Disposition: STILL A PATIENT Discharge Problem: Conjunctivitis, Ocular pain, right eye Instructions: Conjunctivitis (ED) Condition: Stable Pt referred to PMD for follow-up: Yes (Dr Paige OP) IPMP verified?: No Additional Instructions: GO TO Opthalmologist office at EXIT 4 ; [address] [facility] ( Behind [employer]) Dr Paige Allergies/Adverse Reactions: Allergies ciprofloxacin [From Cipro] Adverse Reaction (Verified 01/18/19 11:36) ciprofloxacin HCl [From Cipro] Adverse Reaction (Verified 01/18/19 11:36) clarithromycin [From Biaxin] Adverse Reaction (Verified 01/18/19 11:36) Penicillins Adverse Reaction (Verified 01/18/19 11:36) Home Medications: Ambulatory Orders 1 [No Reported Medications] 01/05/19
[2019-01-18] MEDS ORDERED: TETRACAINE 0.5% UNIT-DOSE OP ONE (11:53)
[2019-01-18] MEDS ORDERED: DILAUDID 1 MG/ML SYRINGE IM STA ×2 (12:34→13:03)
[2019-01-18] MEDS ORDERED: TORADOL IM STA (13:41)
== END 2019-01-18 13:54 | disposition still patient (30) ==
LOC: ED 11:23
DX: H10.9 Unspecified conjunctivitis (principal); H57.11 Ocular pain, right eye; H53.8 Other visual disturbances
CPT/HCPCS: 87070; 96372; 99283